=== PATIENT | male | born 2005 | race Caucasian/White ===

== ENCOUNTER 2024-05-01 15:56 | Emergency (ER) | payer SELFPAY ==
[~2024-05-01] VITALS: Ht 180.3 cm; Wt 54.4 kg
[2024-05-01] VITALS (26 sets, daily range): BP systolic 85–117; BP diastolic 51–79
[~2024-05-01 15:56] MED LIST: PROPOFOL 200 MG/20 ML VIAL IV ONE
[2024-05-01] MEDS ORDERED: ONDANSETRON HCl 4 MG/2 ML SDV IV ONE (16:35)
[2024-05-01] MEDS ORDERED: MORPHINE SULFATE 4 MG/ML VIAL IV ONE ×2 (16:35→17:20)
[2024-05-01] MEDS ORDERED: SODIUM CHLORIDE 0.9% 1,000 ML IV ONE ×2 (17:35→18:40)
[2024-05-01 18:54] LABS: BASO% 0.1 % (0-3); HEMATOCRIT 40.2 % (39.0-50.0); HEMOGLOBIN 12.7 g/dl (14.0-18.0); IMMATURE GRANULOCYTES 0.3 % (0.0-5.0); LYMPH% 7.7 % (15-41); MEAN CELL VOLUME 94.6 fL CALC (80.0-100.0); MEAN CORPUSCULAR HGB 29.9 pG CALC (26.0-32.0); MEAN CORPUSCULAR HGB CONC 31.6 g/dL CAL (32.0-36.0); MONO% 5.8 % (2-13); NEUT# 6.71 thou/uL (1.82-7.42); NEUT% 86.1 % (42-76); RED BLOOD COUNT 4.25 mill/uL (4.70-6.10)
[2024-05-01 19:05] LABS: ALBUMIN 3.8 g/dL (3.2-5.0); BILIRUBIN, TOTAL 0.8 mg/dL (0.2-1.3); CREATININE 0.7 mg/dL (0.7-1.3); POTASSIUM 4.2 mmol/l (3.5-5.1); TOTAL PROTEIN 6.7 g/dL (6.3-8.2)
[2024-05-01] MEDS ORDERED: TYLENOL # 31 TA1 PO (20:25)
[2024-05-01] MEDS ORDERED: MOTRIN800 MG PO (20:25)
== END 2024-05-01 21:07 | disposition home or self-care (01) | DRG 563 ==
LOC: ED 15:56
PROVIDERS: Family Medicine
PROC: 0RSJXZZ Reposition Right Shoulder Joint, External Approach (ICD-10-PCS; principal; 2024-05-01)
DX: M24.411 Recurrent dislocation, right shoulder (principal); Z20.822 Contact with and (suspected) exposure to COVID-19
CPT/HCPCS: J2405